=== PATIENT | male | born 1975 | race Asian ===

== ENCOUNTER 2019-12-14 00:03 | Emergency (ER) | payer MEDICAID ==
[~2019-12-14] VITALS: Ht 165.1 cm; Wt 71.0 kg
[2019-12-14] MEDS ORDERED: METF-960 PO (00:09)
[2019-12-14 00:21] LABS: BASOPHILS % (AUTO) 0.3 % (0.0-2.0); EOSINOPHILS % (AUTO) 2.2 % (1.0-6.0); HEMATOCRIT 44.5 % (41-53); HEMOGLOBIN 14.7 g/dL (13.5-17.5); LYMPHOCYTES # (AUTO) 2.3 K/uL (1.0-4.8); LYMPHOCYTES % (AUTO) 20.7 % (22.0-44.0); MEAN CORPUSCULAR HEMOGLOBIN 28.9 pg (26.0-34.0); MEAN CORPUSCULAR VOLUME 88 fL (80-100); MONOCYTES # (AUTO) 0.8 K/uL (0.1-1.0); MONOCYTES % (AUTO) 7.4 % (2.0-9.0); NEUTROPHILS # (AUTO) 7.6 K/uL (1.8-7.7); NEUTROPHILS % (AUTO) 69.4 % (40.0-70.0); PLATELET COUNT (AUTO) 209 K/uL (150-450); RED BLOOD CELL COUNT(AUTO) 5.08 MIL/uL (4.50-5.90); RED CELL DISTRIBUTION WIDTH 12.6 % (11.5-14.5)
[2019-12-14] MEDS ORDERED: IOVERSOL 350 MG/ML 100 ML VIAL ONE (00:21)
[2019-12-14] MEDS ORDERED: SODIUM CHLORIDE 0.9% 100 ML ONE (00:21)
[2019-12-14 00:36] LABS: PROTHROMBIN TIME 9.7 SEC (9.4-11.6)
[2019-12-14 00:38] LABS: ALANINE AMINOTRANSFERASE 40 U/L (12-78); ALBUMIN 3.5 g/dL (3.4-5.0); ALKALINE PHOSPHATASE 90 U/L (46-116); ANION GAP 5 mmol/L (8-16); ASPARTATE AMINOTRANSFERASE 17 U/L (15-37); BILIRUBIN,TOTAL 0.3 mg/dL (0.1-1.0); CALCIUM, TOTAL 8.5 mg/dL (8.8-10.5); CARBON DIOXIDE 28 mmol/L (22-29); CHLORIDE 101 mmol/L (98-107); CREATININE 1.04 mg/dL (0.60-1.30); GLOMERULAR FILTR. RATE CALC > 60 mL/min (>60); SODIUM SERUM 134 mmol/L (136-145); TOTAL PROTEIN, SERUM 7.2 g/dL (6.4-8.2); UREA NITROGEN, BLOOD 18 mg/dL (7-18)
[2019-12-14 00:43] LABS: GLUCOSE,RANDOM 437 mg/dL (70-110)
[2019-12-14] MEDS ORDERED: SODIUM CHLORIDE 0.9% 1,000 ML IV ONE (01:15)
[2019-12-14] MEDS ORDERED: ACYCLOVIR 700 MG in DEXTROSE 5%-WATER 100 ML IV ONE (01:15)
[2019-12-14 02:22] LABS: GLUCOSE,POINT OF CARE 360 MG/DL (70-110)
[2019-12-14 04:00] VITALS: BP 122/65
== END 2019-12-14 02:50 | disposition short-term general hospital (02) ==
LOC: EMS 00:06
DX: G45.9 Transient cerebral ischemic attack, unspecified (principal); B00.4 Herpesviral encephalitis; E11.65 Type 2 diabetes mellitus with hyperglycemia; Z79.84 Long term (current) use of oral hypoglycemic drugs
CPT/HCPCS: 36415; 70450; 70496; 71045; 80053; 82009; 82962; 84484; 85025; 85610; 85730; 87040; 93005; 96365; 99291; J0133; J7050; J7060; Q9967

== ENCOUNTER 2025-02-18 19:51 | Inpatient (IN) | payer MEDICAID, OTHER ==
[~2025-02-18] VITALS: Ht 165.1 cm; Wt 78.1 kg
[~2025-02-18 19:51] MED LIST: METF-1211 PO
[2025-02-18 20:16] VITALS: PULSE 97; RESP 37; O2SAT 99
[2025-02-18 20:39] LABS: BASOPHILS % (AUTO) 0.6 % (0.0-2.0); EOSINOPHILS % (AUTO) 1.7 % (1.0-6.0); HEMATOCRIT 30.7 % (41-53); HEMOGLOBIN 9.7 g/dL (13.5-17.5); LYMPHOCYTES # (AUTO) 1.8 K/uL (1.0-4.8); LYMPHOCYTES % (AUTO) 12.6 % (22.0-44.0); MEAN CORPUSCULAR HEMOGLOBIN 24.8 pg (26.0-34.0); MEAN CORPUSCULAR HGB CONC 31.7 G/dL (31.0-37.0); MEAN CORPUSCULAR VOLUME 78 fL (80-100); MONOCYTES # (AUTO) 0.7 K/uL (0.1-1.0); MONOCYTES % (AUTO) 4.8 % (2.0-9.0); NEUTROPHILS # (AUTO) 11.7 K/uL (1.8-7.7); NEUTROPHILS % (AUTO) 80.3 % (40.0-70.0); PLATELET COUNT (AUTO) 447 K/uL (150-450); RED BLOOD CELL COUNT(AUTO) 3.91 MIL/uL (4.50-5.90); RED CELL DISTRIBUTION WIDTH 17.6 % (11.5-14.5); WHITE BLOOD COUNT (AUTO) 14.5 K/uL (4.5-11.0)
[2025-02-18 20:46] LABS: LACTIC ACID 1.2 mmol/L (0.4-2.0)
[2025-02-18 20:49] LABS: ANION GAP 10 mmol/L (8-16); CALCIUM, TOTAL 8.4 mg/dL (8.8-10.5); CARBON DIOXIDE 26 mmol/L (22-29); CHLORIDE 105 mmol/L (98-107); GLOMERULAR FILTR. RATE CALC 54 mL/min (>60); GLUCOSE,RANDOM 146 mg/dL (70-110); POTASSIUM 3.7 mmol/L (3.5-5.1); SODIUM SERUM 141 mmol/L (136-145); UREA NITROGEN, BLOOD 41 mg/dL (7-18)
[2025-02-18 20:52] LABS: PROTHROMBIN TIME 11.6 SEC (9.4-11.6)
[2025-02-18 20:55] LABS: ALBUMIN 1.7 g/dL (3.4-5.0); BILIRUBIN,DIRECT 0.1 mg/dL (0.00-0.20); BILIRUBIN,TOTAL 0.2 mg/dL (0.1-1.0); TOTAL PROTEIN, SERUM 8.2 g/dL (6.4-8.2)
[2025-02-18 20:56] LABS: CREATINE KINASE, TOTAL ONLY 133 U/L (39-308)
[2025-02-18 21:01] LABS: TROPONIN I-HIGH SENSITIVITY 237 ng/L (<76)
[2025-02-18 21:02] LABS: B-TYPE NATRIURETIC PEPTIDE 1640 pg/mL (0-100)
[2025-02-18] MEDS: FUROSEMIDE 40 MG/4 ML VIAL IVP ONE (21:09)
[2025-02-18] MEDS: CefTRIAXone 1 GM/DEXTROSE 50 ML IV ONE (21:09)
[2025-02-18] MEDS: NITROGLYCERIN 2% (1 GM=INCH) OINTMENT PACKET TP ONE (21:09)
[2025-02-18] MEDS: AZITHROMYCIN 500 MG/NS 250 ML IV ONE (21:26)
[2025-02-18 21:55] LABS: COVID AG,FIA SOURCE NASAL SWAB
[2025-02-18] MEDS ORDERED: ONDANSETRON HCL 4 MG/2 ML VIAL IVP PRN (22:30)
[2025-02-18] MEDS ORDERED: MORPHINE SULFATE 2 MG/ML SYRINGE IVP PRN (22:30)
[2025-02-18] MEDS ORDERED: ALBUTEROL SULFATE 2.5 MG/0.5 ML NEB SOLUTION NEB PRN (22:30)
[2025-02-18] MEDS ORDERED: MAGNESIUM HYDROXIDE SUSPENSION 30 ML UDCUP PO PRN (22:30)
[2025-02-18] MEDS ORDERED: IPRATROPIUM BROMIDE 0.5 MG/2.5 ML NEB SOLUTION NEB PRN (22:30)
[2025-02-18] MEDS ORDERED: ZOLPIDEM TARTRATE 5 MG TABLET PO PRN (22:30)
[2025-02-18] MEDS ORDERED: BISACODYL 10 MG RECTAL RECTAL SUPPOSITORY PR PRN (22:30)
[2025-02-18 22:31] VITALS: PULSE 101; RESP 37; O2SAT 97
[2025-02-18 22:32] LABS: ABG A-A DIFF O2 167.5 mmHg (10-20.0); ABG BASE EXCESS -0.4 mmol/L (-2.0-3.0); ABG CARBOXYHEMOGLOBIN 0.2 % (0.5-1.5); ABG HCO3 24.4 mmol/L (21.0-28.0); ABG METHEMOGLOBIN 0.9 % (0.0-1.5); ABG OXYGEN CONTENT 13.7 mL/dL (15.0-23.0); ABG OXYGEN SATURATION 94.3 % (94.0-98.0); ABG OXYHEMOGLOBIN 93.3 % (94.0-98.0); ABG PCO2 35 mmHg (32.0-48.0); ABG PH 7.445 (7.350-7.450); ABG TOTAL HEMOGLOBIN 10.4 G/dL (13.5-17.5); ALLEN TEST, BLOOD GAS Positive; PO2, ARTERIAL BG 77.1 mmHg (83.0-108.0); SITE, BLOOD GAS RT RADIAL; SOURCE, BLOOD GAS ARTERIAL; TEMPERATURE, FAHRENHEIT, BG 98.6 FAHREN (96.0-98.6)
[2025-02-18 22:33] LABS: INSPIRATORY TIME, BG 0.9 SEC; O2 DEVICE,BLOOD GAS BIPAP (ROOM AIR); SPONTANEOUS VT, BG 658 ml
[2025-02-18 22:36] LABS: SARS-COV2 (COVID) ANTIGEN,FIA Negative (Negative)
[2025-02-18 22:38] LABS: INFLUENZA TYPE A NEGATIVE FOR TYPE A (NEGATIVE); INFLUENZA TYPE B NEGATIVE FOR TYPE B (NEGATIVE)
[2025-02-18 23:02] LABS: TROPONIN I-HIGH SENSITIVITY 230 ng/L (<76)
[2025-02-18 23:07] LABS: APPEARANCE,URINE CLEAR (CLEAR); BILIRUBIN,URINE NEGATIVE (NEGATIVE); COLOR,URINE LIGHT YELLOW (YELLOW); GLUCOSE, URINE (UA) NEGATIVE (NEGATIVE); KETONES,URINE NEGATIVE (NEGATIVE); LEUKOCYTE ESTERASE ,URINE NEGATIVE (NEGATIVE); NITRATE,URINE NEGATIVE (NEGATIVE); OCCULT BLOOD,URINE TRACE (NEGATIVE); PROTEIN,URINE 300-600,SEE CONFIRM mg/dL (NEGATIVE); SPECIFIC GRAVITIY, URINE 1.011 (1.003-1.030); UROBILINOGEN,URINE <=1.0 mg/dL (<=1.0)
[2025-02-18 23:45] LABS: BACTERIA,URINE None Seen /HPF (None Seen); RBC,URINE 0-2 /HPF (0-2); SQUAMOUS EPITHELIAL CELL,UR Few /LPF (None Seen); SULFOSALICYLIC ACID,URINE 4+ (Negative); WBC,URINE None Seen /HPF (0-5)
[2025-02-19] VITALS (17 sets, daily range): BP systolic 125–166; BP diastolic 78–97; PULSE 82–106; RESP 18–34; TEMP 99.2–101.5; O2SAT 92–100
[2025-02-19] MEDS: MethylPREDNISolone SOD SUCC 125 MG/2 ML VIAL IVP SCH (00:15)
[2025-02-19] MEDS: HEPARIN SODIUM,PORCINE 5,000 UNITS/ML VIAL SQ SCH (00:16)
[2025-02-19] MEDS: IPRATROPIUM BROMIDE 0.5 MG/2.5 ML NEB SOLUTION NEB SCH (02:30)
[2025-02-19] MEDS: ALBUTEROL SULFATE 2.5 MG/0.5 ML NEB SOLUTION NEB SCH (02:31)
[2025-02-19 06:16] LABS: BASOPHILS % (AUTO) 0.2 % (0.0-2.0); EOSINOPHILS % (AUTO) 0 % (1.0-6.0); HEMATOCRIT 30.2 % (41-53); HEMOGLOBIN 9.6 g/dL (13.5-17.5); LYMPHOCYTES # (AUTO) 0.7 K/uL (1.0-4.8); LYMPHOCYTES % (AUTO) 2.9 % (22.0-44.0); MEAN CORPUSCULAR HEMOGLOBIN 24.7 pg (26.0-34.0); MEAN CORPUSCULAR HGB CONC 31.7 G/dL (31.0-37.0); MEAN CORPUSCULAR VOLUME 78 fL (80-100); MONOCYTES # (AUTO) 0.3 K/uL (0.1-1.0); MONOCYTES % (AUTO) 1.2 % (2.0-9.0); PLATELET COUNT (AUTO) 379 K/uL (150-450); RED BLOOD CELL COUNT(AUTO) 3.87 MIL/uL (4.50-5.90); RED CELL DISTRIBUTION WIDTH 17.6 % (11.5-14.5)
[2025-02-19 06:19] LABS: CALCIUM, TOTAL 8.5 mg/dL (8.8-10.5); CREATININE 1.37 mg/dL (0.60-1.30); MAGNESIUM 1.9 mg/dL (1.80-2.40); NEUTROPHILS % (AUTO) 95.7 % (40.0-70.0); PHOSPHORUS 5.1 mg/dL (2.5-4.9); POTASSIUM 3.4 mmol/L (3.5-5.1)
[2025-02-19 06:49] LABS: TROPONIN I-HIGH SENSITIVITY 204 ng/L (<76)
[2025-02-19] MEDS: PANTOPRAZOLE SODIUM 40 MG DR TABLET PO SCH (08:49)
[2025-02-19] MEDS: AmLODIPine BESYLATE 5 MG TABLET PO SCH (08:50)
[2025-02-19] MEDS: CARVEDILOL 6.25 MG TABLET PO SCH (08:50)
[2025-02-19] MEDS: TAMSULOSIN HCL 0.4 MG CAPSULE PO SCH (08:50)
[2025-02-19] MEDS: ASPIRIN 81 MG DR TABLET PO SCH (08:50)
[2025-02-19] MEDS: ACETAMINOPHEN 325 MG TABLET PO PRN (08:50)
[2025-02-19] MEDS: GuaiFENesin SR 600 MG ER TABLET PO SCH (08:50)
[2025-02-19] MEDS: FUROSEMIDE 20 MG/2 ML VIAL IVP SCH (08:50)
[2025-02-19] MEDS: BENZONATATE 100 MG CAPSULE PO SCH (08:51)
[2025-02-19] MEDS: DOCUSATE SODIUM 100 MG CAPSULE PO SCH (08:52)
[2025-02-19] MEDS: LISINOPRIL 5 MG TABLET PO SCH (08:52)
[2025-02-19] MEDS ORDERED: LISINOPRIL 5 MG TABLET PO SCH (09:00)
[2025-02-19 09:12] LABS: TROPONIN I-HIGH SENSITIVITY 223 ng/L (<76)
[2025-02-19] MEDS ORDERED: HydrALAZINE HCL 20 MG/ML VIAL IVP PRN (09:30)
[2025-02-19] MEDS ORDERED: DEXTROSE 50%-WATER 25 GM/50 ML SYRINGE IVP PRN (15:30)
[2025-02-19] MEDS: POTASSIUM CHLORIDE 20 MEQ ER TABLET PO ONE (16:07)
[2025-02-19] MEDS: INSULIN LISPRO 100 UNITS/ML SQ PRN (17:34)
[2025-02-19] MEDS: ATORVASTATIN CALCIUM 40 MG TABLET PO SCH (20:00)
[2025-02-19] MEDS: CefTRIAXone 1 GM/DEXTROSE 50 ML IV SCH (20:01)
[2025-02-19] MEDS ORDERED: SODIUM CHLORIDE 0.9% 250 ML IV ONE (20:06)
[2025-02-19] MEDS: HYDROCODONE/ACETAMINOPHEN 5-325 MG TABLET PO PRN (20:33)
[2025-02-19] MEDS: AZITHROMYCIN 500 MG/NS 250 ML IV SCH (21:19)
[2025-02-19 21:45] LABS: GLUCOMETER DEV NAME(LOC) ICU.S6; GLUCOSE,POINT OF CARE 278 MG/DL (70-110)
[2025-02-19 21:55] LABS: GLUCOMETER DEV NAME(LOC) ICUN.5; GLUCOSE,POINT OF CARE 220 MG/DL (70-110)
[2025-02-20] VITALS (9 sets, daily range): BP systolic 120–152; BP diastolic 77–92; PULSE 81–89; RESP 18–24; TEMP 97.4–99; O2SAT 91–98
[2025-02-20 00:25] LABS: GLUCOMETER DEV NAME(LOC) ICUN.5; GLUCOSE,POINT OF CARE 225 MG/DL (70-110)
[2025-02-20 05:51] LABS: EOSINOPHILS % (AUTO) 0 % (1.0-6.0); HEMATOCRIT 28.5 % (41-53); HEMOGLOBIN 9.1 g/dL (13.5-17.5); LYMPHOCYTES % (AUTO) 6.3 % (22.0-44.0); MEAN CORPUSCULAR HEMOGLOBIN 24.7 pg (26.0-34.0); MEAN CORPUSCULAR VOLUME 77 fL (80-100); MONOCYTES # (AUTO) 0.2 K/uL (0.1-1.0); MONOCYTES % (AUTO) 1.2 % (2.0-9.0); PLATELET COUNT (AUTO) 352 K/uL (150-450); RED BLOOD CELL COUNT(AUTO) 3.69 MIL/uL (4.50-5.90); RED CELL DISTRIBUTION WIDTH 17.7 % (11.5-14.5); WHITE BLOOD COUNT (AUTO) 16.3 K/uL (4.5-11.0)
[2025-02-20 05:56] LABS: NEUTROPHILS % (AUTO) 92.5 % (40.0-70.0)
[2025-02-20 06:12] LABS: HEMOGLOBIN A1C 7.3 % (3.8-5.6)
[2025-02-20 06:28] LABS: ANION GAP 11 mmol/L (8-16); CALCIUM, TOTAL 8.4 mg/dL (8.8-10.5); CARBON DIOXIDE 25 mmol/L (22-29); CHLORIDE 103 mmol/L (98-107); CHOL/HDL RATIO 1.7 (4.2-7.3); CHOLESTEROL 78 mg/dL (131-200); CREATININE 1.53 mg/dL (0.60-1.30); GLOMERULAR FILTR. RATE CALC 49 mL/min (>60); GLUCOSE,RANDOM 232 mg/dL (70-110); HDL CHOLESTEROL 45 mg/dL (40-60); LDL CHOL (CALC.) 26 mg/dL (0-130); POTASSIUM 3.5 mmol/L (3.5-5.1); SODIUM SERUM 139 mmol/L (136-145); TRIGLYCERIDES 35 mg/dL (15-150); UREA NITROGEN, BLOOD 58 mg/dL (7-18)
[2025-02-20 06:38] LABS: RBC MORPHOLOGY COMMENT ABNORMAL RBC MORPH
[2025-02-20 06:46] LABS: TROPONIN I-HIGH SENSITIVITY 127 ng/L (<76)
[2025-02-20 08:26] LABS: GLUCOMETER DEV NAME(LOC) ICUN.5; GLUCOSE,POINT OF CARE 224 MG/DL (70-110)
[2025-02-21 18:12] LABS: GLUCOMETER DEV NAME(LOC) 5N.1D; GLUCOSE,POINT OF CARE 290 MG/DL (70-110)
== END 2025-02-20 17:15 | disposition short-term general hospital (02) | DRG 189 ==
LOC: EMS 19:51 → EDH 22:18 → ICU 02-19 00:09 → 5S 02-20 06:31
PROVIDERS: ADMIT Internal Medicine; ATTEND Internal Medicine
PROC: 5A09357 Assistance with Respiratory Ventilation, Less than 24 Consecutive Hours, Continuous Positive Airway Pressure (ICD-10-PCS; principal; 2025-02-18)
PROC: 5A09357 Assistance with Respiratory Ventilation, Less than 24 Consecutive Hours, Continuous Positive Airway Pressure (ICD-10-PCS; 2025-02-19)
DX: J96.01 Acute respiratory failure with hypoxia (principal); I50.33 Acute on chronic diastolic (congestive) heart failure; J18.9 Pneumonia, unspecified organism; N17.9 Acute kidney failure, unspecified; I11.0 Hypertensive heart disease with heart failure; Z20.822 Contact with and (suspected) exposure to COVID-19; D72.829 Elevated white blood cell count, unspecified; E78.5 Hyperlipidemia, unspecified; D64.9 Anemia, unspecified; E11.9 Type 2 diabetes mellitus without complications; F17.210 Nicotine dependence, cigarettes, uncomplicated; I69.331 Monoplegia of upper limb following cerebral infarction affecting right dominant side; I25.2 Old myocardial infarction
CPT/HCPCS: 36600; 71045; 71250; 80048; 80061; 80076; 81001; 81002; 82550; 82805; 82962; 83036; 83605; 83735; 83880; 84100; 84484; 85025; 85610; 85730; 87040; 87081; 87481; 87804; 92526; 92610; 93005; 93306; 94640; 94660; 99285; J0360; J0456; J0696; J1644; J1940; J2919; J7050; 36415-L1; 36415-TC; 82803-TC; J7613